=== PATIENT | female | born 1965 | race Two or more races ===

== ENCOUNTER 2019-09-20 19:30 | Emergency (ER) | payer OTHER ==
[2019-09-20 19:45] VITALS: BP 144/96
== END 2019-09-20 23:14 | disposition left against medical advice (07) ==
LOC: EDBD 19:30 → ER 19:33
DX: R10.84 Generalized abdominal pain (principal); K92.0 Hematemesis; M79.651 Pain in right thigh; Z90.49 Acquired absence of other specified parts of digestive tract
CPT/HCPCS: 93005